=== PATIENT | male | born 1990 | race Caucasian/White ===

== ENCOUNTER 2020-04-26 07:25 | Emergency (ER) | payer OTHER ==
[~2020-04-26] VITALS: Ht 188 cm; Wt 86.2 kg
[2020-04-26] MEDS ORDERED: PREDNISONE 20 M20 M1 PO (07:55)
[2020-04-26] MEDS ORDERED: IBUPROFEN 800800 MG PO (07:55)
[2020-04-26 08:01] VITALS: BP 115/74
--- NOTE | 2020-04-27 09:18 | EKG ---
[place] [address] ELECTROCARDIOGRAM REPORT Name: CHANDLER YANG 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
== END 2020-04-26 08:01 | disposition home or self-care (01) ==
LOC: M.ERS 07:25
DX: R07.89 Other chest pain (principal); L30.9 Dermatitis, unspecified; Z88.2 Allergy status to sulfonamides